=== PATIENT | male | born 1985 | race African-American/Black ===

== ENCOUNTER 2017-09-12 21:08 | Emergency (ER) | payer OTHER ==
[~2017-09-12] VITALS: Ht 170.2 cm; Wt 113.4 kg
--- NOTE | ~2017-09-12 | EKG ---
[address] [address] ELECTROCARDIOGRAM REPORT Name: BUTCHAPARNA LEVI [id number] Admission: 09/12/17 Attend Phys: Discharge: 09/12/17 Date of : 81 Report #: [id number] THIS REPORT FOR: //name// [facility] ED Test Date: 2017-09-12 Test Time: 21:54:50 Pat Name: APARNA RAE Department: Room: Gender: Air Quality Specialist: KYLEE : 1985 Requested By: Shad Virk Order Number: [id number] MD: Navjot Thurman Measurements Intervals [place] Rate: 85 P: 46 MS: 163 QRS: 56 QRSD: 92 T: 144 QT: 395 QTc: 470 Interpretive Statements Sinus rhythm Left atrial enlargement anterior st elevations, possible early repol, similar to prior ekg Electronically Signed On 09-13-2017 7:31:36 CDT by Navjot Thurman [email or web address] <ELECTRONICALLY SIGNED> By: Navjot Thurman MD 09/13/17 0731 [id number] [id number] MD DIANA Clements
[~2017-09-12 21:08] MED LIST: ADVAIR HFA115 MCG/21 INH; ALBUTEROL2.5 MG/0.5 INH; AVELOX; AVELOX 400 MG400 MG; CLARITIN10 MG PO; DUONEB 2.5-0.5 M3 ML; DUONEB 2.5-0.5 M3 ML INH; FLAGYL500 MG PO; LISINOPRIL20 MG PO; MUCINEX600 MG PO; NOHOMEMEDICATIONS; NORVASC10 MG PO; PANTOPRAZOLE SO40 M1 PO; PREDNISONE 20 M20 MG PO; PREDNISONE PO; PRILOSEC 20 MG20 MG PO; PROVENTIL IH; PULMICORT FLEX90 MCG; SINGULAIR 10 MG10 M1 PO; VENTOLIN HFA 1818 GM INH; ZPAK PO
[2017-09-12 22:28] LABS: HEMATOCRIT 48.2 % (42.0-52.0); HEMOGLOBIN 16.9 gm/dL (14.0-18.0); MCH 30.1 pg (26.0-34.0); MCHC 35.1 g/dL (28.0-37.0); MCV 85.8 fL (80.0-100.0); RBC 5.62 mil/uL (4.50-6.00); RDW 13.9 % (10.5-14.5); WBC 5.7 thou/uL (4.0-11.0)
[2017-09-12 22:36] LABS: ANION GAP 7 mmol/L (7-16); BUN 15 mg/dL (7-18); CALCIUM 8.7 mg/dL (8.5-10.1); CHLORIDE 103 mmol/L (98-107); CO2 27 mmol/L (21-32); CREATININE 1.5 mg/dL (0.7-1.3); GLUCOSE 111 mg/dL (74-106); POTASSIUM 3.9 mmol/L (3.5-5.1); SODIUM 137 mmol/L (136-145)
[2017-09-12 22:45] LABS: TROPONIN-I < 0.04 ng/mL (<0.06)
[2017-09-12] MEDS ORDERED: HYDROCHLOROTHIA25 M1 PO (23:33)
[2017-09-12] MEDS ORDERED: PREDNISONE 20 M20 MG PO (23:33)
[2017-09-12] MEDS ORDERED: VENTOLIN HFA 1818 GM INH (23:33)
[2017-09-12] MEDS ORDERED: ALBUTEROL2.5 MG/31 INH (23:33)
== END 2017-09-12 23:41 | disposition home or self-care (01) ==
LOC: ER 21:08
PROVIDERS: Physician Assistant
DX: J45.909 Unspecified asthma, uncomplicated (principal); I16.0 Hypertensive urgency; Z91.14 Patient's other noncompliance with medication regimen; Z91.013 Allergy to seafood

== ENCOUNTER 2017-12-08 06:02 | Inpatient (IN) | payer OTHER ==
[~2017-12-08] VITALS: Ht 170.2 cm; Wt 113.4 kg
--- NOTE | ~2017-12-08 | EKG ---
[address] [address] ELECTROCARDIOGRAM REPORT Name: BUTCHAPARNATYREE SIMS Room #: 170-4 [facility]..#: [id number] Admission: 12/08/17 Attend Phys: Marques Hurst MD Discharge: Date of : 81 Report #: [id number] THIS REPORT FOR: //name// [facility] ED Test Date: 2017-12-08 Test Time: 07:48:27 Pat Name: APARNA RAE Department: Room: 170 Gender: M Client Partner: TIN : 1985 Requested By: Ramsey Perez Order Number: [id number] MD: Navjot Thurman Measurements Intervals [place] Rate: 114 P: 70 AR: 149 QRS: 75 QRSD: 87 T: 72 QT: 348 QTc: 480 Interpretive Statements Sinus tachycardia Left atrial enlargement ST elev, probable normal early repol pattern Compared to ECG 09/12/2017 21:54:50 Electronically Signed On 12-08-2017 10:46:34 AGRICULTURAL ENGINEERING TECHNOLOGIST by Navjot Thurman [email or web address] <ELECTRONICALLY SIGNED> By: Navjot Thurman MD 12/08/17 1046 0748 Navjot Thurman MD /KATRINA
[~2017-12-08 06:02] MED LIST changes: +ALBUTEROL2.5 MG/31 INH; +HYDROCHLOROTHIA25 M1 PO
[2017-12-08 06:09] VITALS: BP 219/142
[2017-12-08 07:27] LABS: HEMATOCRIT 49.1 % (42.0-52.0); HEMOGLOBIN 17.2 gm/dL (14.0-18.0); MCH 29.1 pg (26.0-34.0); MCV 83.2 fL (80.0-100.0); RBC 5.9 mil/uL (4.50-6.00); RDW 13.7 % (10.5-14.5); WBC 9.8 thou/uL (4.0-11.0)
[2017-12-08 07:34] LABS: CALCIUM 9.1 mg/dL (8.5-10.1); CREATININE 1.5 mg/dL (0.7-1.3); POTASSIUM 4.2 mmol/L (3.5-5.1)
[2017-12-08] MEDS ORDERED: PREDNISONE 20 M20 MG PO (07:43)
[2017-12-08] MEDS ORDERED: PROAIR HFA8.5 GM INH (07:43)
[2017-12-08] MEDS ORDERED: ZPAK PO (07:44)
[2017-12-08 11:06] VITALS: BP 178/115
[2017-12-08 12:23] VITALS: BP 190/121
[2017-12-08 19:00] VITALS: BP 177/104
[2017-12-09] VITALS: BP 145/88
[2017-12-09 04:00] VITALS: BP 137/88
[2017-12-09 08:16] VITALS: BP 134/82
[2017-12-09 11:49] LABS: HEMATOCRIT 47.5 % (42.0-52.0); HEMOGLOBIN 16.2 gm/dL (14.0-18.0); MCH 28.7 pg (26.0-34.0); MCHC 34.2 g/dL (28.0-37.0); MCV 83.9 fL (80.0-100.0); RBC 5.66 mil/uL (4.50-6.00); RDW 13.4 % (10.5-14.5); WBC 16.2 thou/uL (4.0-11.0)
[2017-12-09 12:05] LABS: ANION GAP 13 mmol/L (7-16); BUN 23 mg/dL (7-18); CALCIUM 9.4 mg/dL (8.5-10.1); CHLORIDE 100 mmol/L (98-107); CO2 24 mmol/L (21-32); CREATININE 1.7 mg/dL (0.7-1.3); GLUCOSE 178 mg/dL (74-106); POTASSIUM 3.4 mmol/L (3.5-5.1); SODIUM 137 mmol/L (136-145); TROPONIN-I < 0.04 ng/mL (<0.06)
[2017-12-09 17:17] VITALS: BP 161/85
[2017-12-09 20:00] VITALS: BP 148/74
[2017-12-09 20:45] VITALS: BP 148/74
[2017-12-10 04:00] VITALS: BP 144/71
[2017-12-10 06:14] LABS: HEMATOCRIT 41.1 % (42.0-52.0); MCH 28.7 pg (26.0-34.0); MCHC 33.9 g/dL (28.0-37.0); MCV 84.6 fL (80.0-100.0); RBC 4.86 mil/uL (4.50-6.00); RDW 13.6 % (10.5-14.5)
[2017-12-10 06:18] LABS: HEMOGLOBIN 13.9 gm/dL (14.0-18.0)
[2017-12-10 06:22] LABS: CALCIUM 8.9 mg/dL (8.5-10.1); CREATININE 1.6 mg/dL (0.7-1.3); POTASSIUM 3.6 mmol/L (3.5-5.1)
[2017-12-10 09:00] VITALS: BP 148/77
[2017-12-10 16:45] VITALS: BP 187/69
[2017-12-10 20:07] VITALS: BP 149/71
[2017-12-11 06:22] LABS: HEMATOCRIT 43.3 % (42.0-52.0); HEMOGLOBIN 14.7 gm/dL (14.0-18.0); MCV 85.4 fL (80.0-100.0); RBC 5.07 mil/uL (4.50-6.00); RDW 13.6 % (10.5-14.5); WBC 16.7 thou/uL (4.0-11.0)
[2017-12-11 06:30] LABS: CALCIUM 8.7 mg/dL (8.5-10.1); CREATININE 1.4 mg/dL (0.7-1.3); POTASSIUM 3.8 mmol/L (3.5-5.1)
[2017-12-11 09:28] VITALS: BP 147/73
[2017-12-11] MEDS ORDERED: PREDNISONE 10 M10 M1 PO ×2 (14:57→15:13)
[2017-12-11] MEDS ORDERED: FELODIPINE 5 MG5 M1 PO (14:57)
[2017-12-11] MEDS ORDERED: PROTONIX 20 MG20 M1 PO (14:57)
[2017-12-11] MEDS ORDERED: MUCINEX600 MG PO (14:57)
[2017-12-11] MEDS ORDERED: HYDROCHLOROTHIA25 M1 PO (14:57)
[2017-12-11] MEDS ORDERED: LEVAQUIN 500 M50012 PO (14:57)
[2017-12-11 15:42] VITALS: BP 147/73
== END 2017-12-11 18:02 | disposition home or self-care (01) | DRG 304 ==
LOC: ER 06:02 → 4N 08:05 → EROBS 08:05 → 4N 11:37
PROVIDERS: Emergency Medicine; Internal Medicine
DX: I16.0 Hypertensive urgency (principal); N17.0 Acute kidney failure with tubular necrosis; J45.901 Unspecified asthma with (acute) exacerbation; I10 Essential (primary) hypertension; F17.210 Nicotine dependence, cigarettes, uncomplicated; Z79.899 Other long term (current) drug therapy; Z71.6 Tobacco abuse counseling; Z91.013 Allergy to seafood; Z23 Encounter for immunization
CPT/HCPCS: 10091

== ENCOUNTER 2019-01-06 12:10 | Emergency (ER) | payer BC, OTHER ==
[~2019-01-06] VITALS: Ht 190.5 cm; Wt 126.1 kg
[~2019-01-06 12:10] MED LIST changes: +FELODIPINE 5 MG5 M1 PO; +LEVAQUIN 500 M50012 PO; +PREDNISONE 10 M10 M1 PO; +PROAIR HFA8.5 GM INH; +PROTONIX 20 MG20 M1 PO
[2019-01-06] MEDS ORDERED: PREDNISONE 20 M20 M1 PO (14:52)
[2019-01-06] MEDS ORDERED: ADVAIR HFA 230M12 GM INH (14:52)
[2019-01-06] MEDS ORDERED: VENTOLIN HFA 1818 GM INH (14:52)
[2019-01-06 15:13] VITALS: BP 176/100
== END 2019-01-06 15:14 | disposition home or self-care (01) ==
LOC: ER 12:10
DX: J45.901 Unspecified asthma with (acute) exacerbation (principal); I10 Essential (primary) hypertension; Z87.891 Personal history of nicotine dependence; Z91.013 Allergy to seafood

== ENCOUNTER 2019-10-18 14:14 | Inpatient (IN) | payer BC, OTHER ==
[~2019-10-18] VITALS: Ht 167.6 cm; Wt 98.1 kg
[~2019-10-18 14:14] MED LIST changes: +ADVAIR HFA 230M12 GM INH; +PREDNISONE 20 M20 M1 PO
[2019-10-18 14:16] VITALS: BP 183/104
[2019-10-18 15:27] LABS: MCHC 34.4 g/dL (28.0-37.0)
[2019-10-18 15:29] LABS: ABSOLUTE NEUTROPHILS 5.6 thou/uL (1.4-8.2); BASOPHILS 1.5 % (0.0-2.0); EOSINOPHILS 4.5 % (0.0-3.0); HEMATOCRIT 32.1 % (42.0-52.0); HEMOGLOBIN 11.1 gm/dL (14.0-18.0); MCH 30.5 pg (26.0-34.0); MCV 88.7 fL (80.0-100.0); MONOCYTES 5.8 % (1.0-8.0); PLATELET COUNT 138 thou/uL (150-400); POLYS 77.2 % (36.0-66.0); RBC 3.63 mil/uL (4.50-6.00); RDW 15.7 % (10.5-14.5); WBC 7.2 thou/uL (4.0-11.0)
[2019-10-18 15:35] LABS: CALCIUM 8.6 mg/dL (8.5-10.1); CREATININE 3.6 mg/dL (0.7-1.3)
[2019-10-18 15:45] LABS: URINE BILIRUBIN NEGATIVE (Negative); URINE BLOOD 2+ (Negative); URINE CLARITY CLEAR; URINE COLOR YELLOW; URINE GLUCOSE-RANDOM* NEGATIVE (Negative); URINE KETONES NEGATIVE (Negative); URINE LEUKOCYTES-REFLEX NEGATIVE (Negative); URINE NITRITE-REFLEX NEGATIVE (Negative); URINE PROTEIN (DIPSTICK) 1+ (Negative); URINE SPECIFIC GRAVITY 1.015 (1.005-1.035); URINE UROBILINOGEN 0.2 E.U./dl (0.2-1.0)
[2019-10-18 15:45] LABS: ALBUMIN 3.5 g/dL (3.4-5.0); TOTAL BILIRUBIN 0.5 mg/dL (<0.1-1.0); TROPONIN-I 0.15 ng/mL (<0.06)
[2019-10-18 15:57] LABS: BACTERIA-REFLEX None Seen /HPF (None Seen); CASTS None Seen /LPF (None Seen); CRYSTALS None Seen /LPF (None Seen); SQUAMOUS None Seen /LPF (0-3); URINE RBC 0-2 Rare /HPF (0-2); URINE WBC-REFLEX None Seen /HPF (0-5)
[2019-10-18 16:36] VITALS: BP 162/92
[2019-10-18 17:46] VITALS: BP 156/96
[2019-10-18 18:43] VITALS: BP 158/91
--- NOTE | 2019-10-18 18:49 | NUR ---
ASSUMMED PT CARE AT APPROXIMATELY 1843. PT A&O X4. VITAL SIGNS STABLE. PT DENIES HAVING CHEST PAIN. PT DENIES HAVING SOB. PT AMBULATES STEADY/INDEPENDENTLY. PT COMFORTABLE IN BED. PT DENIES HAVING FURTHER CONCERNS.
[2019-10-18 19:47] VITALS: BP 159/94
[2019-10-19 01:49] VITALS: BP 133/65
[2019-10-19 04:27] VITALS: BP 129/82
--- NOTE | 2019-10-19 04:37 | NUR ---
PT ARRIVED ON UNIT AT CHANGE OF SHIFT. ALERT AND ORIENTED. VSS WITH ELEVATED BP SBP IN 158. PT DENIES CHEST PAIN, NAUSEA, VOMITING AND DIRRHEA. DENIES COUGH OR CHILLS. REPORTS HEADACHE AND PHOTO SENSITIVITY , AND TOOTH ACHE. TYLENOL GIVEN. ADMISSION ASSESSMENT COMPLETED. PT CURRENTLY PAIN CONTROLLED AND BP WNL. WILL CONTINUE TO MONITOR.
[2019-10-19 04:40] LABS: CREATININE 3.7 mg/dL (0.7-1.3); POTASSIUM 3.1 mmol/L (3.5-5.1)
[2019-10-19 04:51] LABS: HEMATOCRIT 32.2 % (42.0-52.0); HEMOGLOBIN 10.8 gm/dL (14.0-18.0); MCH 30.1 pg (26.0-34.0); MCHC 33.5 g/dL (28.0-37.0); MCV 89.9 fL (80.0-100.0); RBC 3.59 mil/uL (4.50-6.00); RDW 15.8 % (10.5-14.5); WBC 6.2 thou/uL (4.0-11.0)
[2019-10-19 07:50] VITALS: BP 148/78
--- NOTE | 2019-10-19 08:15 | NUR ---
ASSUMED CARE OF PT APPROX 0715, C/O HEADACHE 02/20, HAS SOME MUCUS HE KEEPS HOCKING AND SWALLOWING DENIES COUGH, DIMINISHED LUNG SOUNDS, LAST BM WAS YESTERDAY. CARDIAC MONITORED, IVF RUNNING, SEE SEPARATE INTERVENTIONS FOR ASSESSMENTS. NOTED K+ 3.1 THIS A.M. UP AD AN STEADY. ENCOURAGED PT TO USE CALL LIGHT FOR ANY NEEDS.
--- NOTE | 2019-10-19 10:48 | EKG ---
[place] [address] [facility] [place] [address] ELECTROCARDIOGRAM REPORT Name: BUTCHAPARNATYREE SIMS Room #: 214-P ADM IN M.R.#: [id number] Admission: 10/18/19 Attend Phys: Luigi Urena MD Discharge: Date of : 81 Report #: [id number] THIS REPORT FOR: //name// [facility] ED Test Date: 2019-10-18 Test Time: 15:27:22 Pat Name: APARNA RAE Department: Room: 214 Gender: M Clergy Member: randi : 1985 Requested By: Shy Levy Order Number: [id number] MD: Navjot Thurman Measurements Intervals [place] Rate: 97 P: 74 DE: 147 QRS: 46 QRSD: 113 T: 207 QT: 379 QTc: 482 Interpretive Statements Sinus rhythm LAE, consider biatrial enlargement RSR' in V1 or V2, probably normal variant LVH with secondary repolarization abnormality Anterior ST elevation, probably due to LVH Electronically Signed On 10-19-2019 10:48:08 INKER AND OPAQUER by Navjot Thurman [email or web address] <ELECTRONICALLY SIGNED> By: Navjot Thurman MD 10/19/19 1048 1527 1527 Navjot Thurman MD /EPI
--- NOTE | 2019-10-19 13:32 | NUR ---
INTRO'D ONCOMING NURSE TO PT AND GAVE REPORT
[2019-10-19 17:30] VITALS: BP 125/54
--- NOTE | 2019-10-19 17:40 | 2DMMODE ---
[facility] [address] [employer] [place] [address] 2 D/M-MODE ECHOCARDIOGRAM Name: BUTCHAPARNATYREE SIMS Room #: 214-P [facility] IN M.R.#: [id number] Admission: 10/18/19 Attend Phys: Luigi Urena MD Discharge: Date of : 81 Report #: [id number] THIS REPORT FOR: //name// APPROVED REPORT Study performed: 10/19/2019 12:09:03 EXAM: Comprehensive 2D, Doppler, and color-flow Echocardiogram Patient Location: Bedside Room #: 214 Status: on-call BSA: 2.05 HR: 79 bpm BP: 148/78 mmHg Rhythm: NSR Other Information Study Quality: Adequate Risk Factors: Cardiac Risk Factors: HTN, DM,, Smoking Indications Elevated Troponin Chest Pain 2D Dimensions IVSd: 16.44 (7-11mm) LVOT Diam: 22.00 (18-24mm) LVDd: 44.12 mm PWd: 17.27 (7-11mm) Ascending Ao: 26.96 (22-36mm) LVDs: 28.80 (25-40mm) Aortic Root: 32.13 mm LV Single Plane 4CH: 62.80 % LV Single Plane 2CH: 53.51 % Biplane EF: 58.8 % Volumes Left Atrial Volume (Systole) Single Plane 4CH: 62.46 mL Single Plane 2CH: 54.72 mL LA ESV Index: 30.00 mL/m2 Aortic Valve AoV Peak Henry.: 1.49 m/s AO Peak Gr.: 8.82 mmHg LVOT Max P.40 mmHg LVOT Max V: 1.16 m/s [facility] [address] [address] 2 D/M-MODE ECHOCARDIOGRAM Name: APARNA RAE Room #: 214-[facility].#: [id number] Admission: 10/18/19 Attend Phys: Luigi Urena MD Discharge: Date of : 81 Report #: [id number] ROQUE Vmax: 2.87 cm2 Mitral Valve E/A Ratio: 0.8 MV Decel. Time: 199.00 ms MV E Max Henry.: 0.63 m/s MV A Henry.: 0.83 m/s MV PHT: 57.71 ms IVRT: 86.51 ms TDI E/Lateral E': 15.75 E/Medial E': 10.50 Medial E' Henry.: 0.06 m/s Lateral E' Henry.: 0.04 m/s Pulmonary Valve PV Peak Henry.: 1.15 m/s PV Peak Gr.: 5.32 mmHg Pulmonary Vein P Vein S: 0.68 m/s P Vein A: 0.28 m/s P Vein D: 0.63 m/s P Vein A Dur.: 114.2 msec P Vein S/D Ratio: 1.08 Tricuspid Valve RAP Estimate: 7.00 mmHg Left Ventricle The left ventricle is normal size. There is normal LV segmental wall motion. Moderate to severe concentric left ventricular hypertrophy. Left ventricular systolic function is normal. The left ventricular ejection fraction is within the normal range. LVEF is 60-65%. Mild diastolic dysfunction is present (impaired relaxation pattern). Right Ventricle The right ventricle is normal size. The right ventricular systolic function is normal. Atria The left atrium size is normal. The right atrium size is normal. Aortic Valve The aortic valve is normal in structure. No aortic regurgitation is present. There is no aortic valvular stenosis. [facility] [address] [place] [address] 2 D/M-MODE ECHOCARDIOGRAM Name: APARNA RAEWAYNE Room #: 214-[facility] IN ..#: [id number] Admission: 10/18/19 Attend Phys: Luigi Urena MD Discharge: Date of : 81 Report #: [id number] Mitral Valve The mitral valve is normal in structure. Trace to mild mitral regurgitation. No evidence of mitral valve stenosis. Tricuspid Valve The tricuspid valve is normal in structure. There is no tricuspid valve regurgitation noted. Pulmonic Valve The pulmonary valve is normal in structure. Trace to mild pulmonic regurgitation. Great Vessels The aortic root is normal in size. The ascending aorta is normal in size. IVC is normal in size and collapses >50% with inspiration. Pericardium There is no pericardial effusion. <Conclusion> The left ventricle is normal size. LVEF is 60-65%. The aortic valve is normal in structure. The mitral valve is normal in structure. Trace to mild mitral regurgitation. The tricuspid valve is normal in structure. The pulmonary valve is normal in structure. Trace to mild pulmonic regurgitation. There is no pericardial effusion. <ELECTRONICALLY SIGNED> By: Markus Snider MD 10/19/19 [phone] [id number] Markus Snider MD /INF
--- NOTE | 2019-10-19 18:01 | NUR ---
ASSUMED CARE AT 1300, SHIFT ASSESSMENT DONE, MEDS GIVEN, VSS. BP TRENDING DOWN. UP AD AN, NSR ON TELE. URINE SAMPLE PENDING FOR DRUG SCREEN. REPORTED HEADECHE, PRN TYLENOL GIVEN. WILL CONTINUE TO ASSESS AND ASSIST WITH ADLs NEEDED.
[2019-10-19 20:30] VITALS: BP 152/77
[2019-10-20 04:46] VITALS: BP 139/74
[2019-10-20 04:46] LABS: ALBUMIN 2.9 g/dL (3.4-5.0); CALCIUM 8.3 mg/dL (8.5-10.1); CREATININE 3.3 mg/dL (0.7-1.3); MAGNESIUM 2.2 mg/dL (1.8-2.4); PHOSPHORUS 3.7 mg/dL (2.5-4.9); POTASSIUM 3.4 mmol/L (3.5-5.1); TOTAL BILIRUBIN 0.2 mg/dL (<0.1-1.0); TOTAL PROTEIN 5.9 g/dL (6.4-8.2); TROPONIN-I 0.1 ng/mL (<0.06)
[2019-10-20 04:57] LABS: CHOLESTEROL 154 mg/dL (<200); HDL CHOLESTEROL 52 mg/dL (>40); LDL CHOLESTEROL 86 mg/dL (<100); TRIGLYCERIDE 80 mg/dL (<150); VLDL 16 mg/dL (<40)
--- NOTE | 2019-10-20 05:03 | NUR ---
PT ALERT AND ORIENTED. DENIES CHEST PAIN OR HEART PALPITATIONS. REPORTED SOB DUE TO HIS ASTHMA AND NEBULIZER WAS ADMINISTERED X 1. OTHER PT STABLE. BP BETTER CONTROLLED. OTHER ASSESSMENTS DOCUMENTED. WILL CONTINUE WITH PLAN OF CARE.
[2019-10-20 05:05] LABS: SERUM ASSESSMENT Clear
[2019-10-20 05:09] LABS: ABSOLUTE NEUTROPHILS 3.7 thou/uL (1.4-8.2); EOSINOPHILS 7.9 % (0.0-3.0); HEMATOCRIT 32.8 % (42.0-52.0); LYMPHOCYTES 20.2 % (24.0-44.0); MCH 30.3 pg (26.0-34.0); MCHC 33.4 g/dL (28.0-37.0); MCV 90.6 fL (80.0-100.0); MONOCYTES 6.7 % (1.0-8.0); PLATELET COUNT 172 thou/uL (150-400); POLYS 64.2 % (36.0-66.0); RBC 3.62 mil/uL (4.50-6.00); RDW 16.6 % (10.5-14.5); WBC 5.8 thou/uL (4.0-11.0)
[2019-10-20 06:35] LABS: ANISOCYTOSIS 2+; PLATELET ESTIMATE NORMAL
[2019-10-20 07:21] LABS: AMP/METHAMP Negative (Negative); BARBITURATES Negative (Negative); BENZODIAZEPINES Negative (Negative); COCAINE Negative (Negative); METHADONE Negative (Negative); OPIATES Negative (Negative); PCP POSITIVE (Negative)
[2019-10-20 07:40] VITALS: BP 130/79
--- NOTE | 2019-10-20 07:47 | NUR ---
ASSUMED CARE OF PT APPROX 0715; APPEARS IN GOOD SPIRITS, BP OF THIS MOMENT 130S SBP, RATES PAIN OF TOOTHACHE AND HEADACHE AT ABOUT A 2, GOOD APPETITE AND HYDRATION, EKG BEING DONE CURRENTLY. GAVE HAND REEFER TRUCK DRIVER, MOUTHWASH, TOILETRIES AND EXTRA JUICE. BM EARLY THIS A.M. NO NEEDS AT THIS TIME AND HAVE ENCOURAGED HIM TO USE CALL LIGHT FOR ANY NEEDS. SEE INTERVENTIONS FOR VARIOUS ASSESSMENTS, IVF RUNNING AND CARDIAC MONITORED; WILL UNHOOK SO THAT HE CAN STROLL HALLS FOR A BIT LATER THIS A.M.
--- NOTE | 2019-10-20 11:23 | EKG ---
[address] [address] ELECTROCARDIOGRAM REPORT Name: SINGH RAETYREE SIMS Room #: 214-P ADM IN M.R.#: [id number] Admission: 10/18/19 Attend Phys: Luigi Urena MD Discharge: Date of : 81 Report #: [id number] THIS REPORT FOR: //name// [facility] Test Date: 2019-10-20 Test Time: 07:41:39 Pat Name: APARNA RAE Department: Room: 214 P Gender: M Instructional Material Director: ADARSH : 1985 Requested By: Rocio Treviño Order Number: [id number] MD: Navjot Thurman Measurements Intervals [place] Rate: 77 P: 49 MT: 158 QRS: 30 QRSD: 87 T: 209 QT: 432 QTc: 489 Interpretive Statements Sinus rhythm Left atrial enlargement Probable left ventricular hypertrophy Early repolarization. Compared to ECG 10/18/2019 15:27:22 Electronically Signed On 10-20-2019 11:23:13 BUSINESS ANALYST MANAGER by Navjot Thurman [email or web address] <ELECTRONICALLY SIGNED> By: Navjot Thurman MD 10/20/19 1123 0 Navjot Thurman MD /KATRINA
[2019-10-20 16:00] VITALS: BP 143/76
--- NOTE | 2019-10-20 16:01 | NUR ---
ASSUMED CARE AT 1300, SHIFT ASSESMENT DONE, MEDS GIVEN, VSS. NSR ON TELE, ROOM AIR. SCHEDULED FOR ECHO TOMORROW MORNING. DR JACKSON CONSULTED, FLUID STOPPED. WILL CONTINUE TO ASSESS AND ASSIST WITH ADLs NEEDED.
[2019-10-20 20:14] VITALS: BP 140/78
--- NOTE | 2019-10-21 04:32 | NUR ---
ASSUMED PT CARE AROUND 1900. PT VSS AND NO C/O SOB N/V/D. PT C/O TOOTHACHE/HEADACHE PROVIDED PAIN MEDICATION WITH PARTIAL RELIEF THROUGHOUT SHIFT. WILL CONTINUE TO MONITOR PT PER POC.
[2019-10-21 04:44] VITALS: BP 145/85
[2019-10-21 05:42] LABS: CALCIUM 8.5 mg/dL (8.5-10.1); CREATININE 3.2 mg/dL (0.7-1.3); PHOSPHORUS 4.3 mg/dL (2.5-4.9); POTASSIUM 3.9 mmol/L (3.5-5.1)
[2019-10-21 08:00] VITALS: BP 158/96
--- NOTE | 2019-10-21 10:37 | NUR ---
ASSUMED CARE AT 0700, SHIFT ASSESSMENT DONE, MEDS GIVEN, VSS. DENIES PAIN, NAUSEA, VOMITING. UP AD AN IN ROOM, NSR ON TELE. REPORTED TOOTH PAIN, PRN TYLENOL GIVEN. AWAITING FOR AN ECHO TO BE DONE. WILL COTINUE TO ASSESS AND ASSIST WITH ADLs NEEDED.
[2019-10-21 12:00] VITALS: BP 146/82
[2019-10-21 16:00] VITALS: BP 138/81
[2019-10-21 19:38] VITALS: BP 150/87
[2019-10-22 00:16] VITALS: BP 129/57
[2019-10-22 04:34] VITALS: BP 120/69
[2019-10-22 06:07] LABS: ALBUMIN 2.9 g/dL (3.4-5.0); CALCIUM 8.7 mg/dL (8.5-10.1); CREATININE 3.4 mg/dL (0.7-1.3); PHOSPHORUS 5.1 mg/dL (2.5-4.9); POTASSIUM 3.6 mmol/L (3.5-5.1)
--- NOTE | 2019-10-22 06:22 | NUR ---
PATIENTS CARES WERE ASSUMED AT SHIFT CHANGE. PATIENT WAS ASSESSED AND MES WERE PASSED. PATIENT C/O PAINFUL TOOTH THE RIGHT BACK MOLAR. A ONE HAILEY ODER OF 200 MG MOLTRIN WAS GIVEN SO THE PATIENT CAN SLEEP. THIS IS A ONE TIE ORDER DUR TO A HIGH CREATININE OF 3.2. PATIENT REPORTED THAT THE TYLENOL IS NOT EFFECTIVE. HOURLY ROUNDS WERE DONE. THE BED IS IN A LOW AND LOCKED POSITION
[2019-10-22 08:00] VITALS: BP 144/71
[2019-10-22] MEDS ORDERED: METOPROLOL SUCC50 MG PO (10:04)
[2019-10-22] MEDS ORDERED: AMLODIPINE BESY10 MG PO (10:04)
[2019-10-22] MEDS ORDERED: HYDROCHLOROTHIA25 M1 PO (10:04)
[2019-10-22 10:45] VITALS: BP 144/71
--- NOTE | 2019-10-22 10:55 | NUR ---
RECEIVED PT'S CARE AROUND 07; PT. AOX4; NO C/O PAIN; AM MEDICATION GIVEN; ST. WAITING FOR D/C; EDUCATED ABOUT WAITING ON PHYSICIAN ROUNDING; SR ON HEART MONITOR; NO C/O CP; BP WNL; ASSESSMENT CHARGED; FOLLOWING POC; AROUND 1030 D/C ORDERS ON PLACE; PT. NOTIFIED; ST. UNDERSTANDING; WORKING ON D/C PAPERS; PRESCRIPTIONS & INFORMATION WILL BE GIVEN BEFORE D/C;
[2019-10-22 12:03] VITALS: BP 144/71
--- NOTE | 2019-10-23 10:09 | HC ---
[facility] [place] [address] CONSULTATION Name: APARNA RAEWAYNE Room #: 214-P [facility] IN M.R.#: [id number] Admission: 10/18/19 Attend Phys: Luigi Urena MD Discharge: 10/22/19 Date of : 81 Report #: [id number] THIS REPORT FOR: //name// CC: Luigi Urena [facility] physician/PCP REASON FOR CONSULTATION: Elevated creatinine. REASON FOR PRESENTATION: Headache. HISTORY OF PRESENT ILLNESS: This is a 34-year-old with history of hypertension, who has not been taking his medications appropriately. He had been having some headaches for the last few days associated with some dizziness. On reporting to the Emergency Room, he was found to be in hypertensive urgency. Blood pressure was 183/104. The patient had been taking nonsteroidal anti-inflammatory medications on a routine basis. Creatinine on presentation was 3.6 and has gone up to 3.7 and then is now down to 3.3. It does look like that the patient had some abnormal kidney function back in 2018. We do not have any readings from 2019. He was admitted to better control his blood pressure and surprisingly his blood pressure is much better on a couple of blood pressure medications. PAST MEDICAL HISTORY: 1. Hypertension. 2. The patient tells me that he has had heart attacks in the past. I am not really sure how accurate is this. 3. Asthma. MEDICATIONS: 1. Prednisone. 2. Albuterol. 3. Felodipine. 4. Hydrochlorothiazide. SOCIAL HISTORY: He admits to drug abuse. REVIEW OF SYSTEMS: GENERAL: No fever or chills. CARDIOVASCULAR: No chest pain or palpitation. PULMONARY: No cough or hemoptysis. GASTROINTESTINAL: No nausea or vomiting. GENITOURINARY: No frequency. No urgency. MUSCULOSKELETAL: No joints pain. No joint swelling. NEUROLOGICAL: As per the history of present illness. FAMILY HISTORY: Significant for hypertension. ALLERGIES: SHELLFISH. [facility] [address] [place] [address] CONSULTATION Name: APARNA RAENE Room #: 214-[facility] [id number] Admission: 10/18/19 Attend Phys: Luigi Urena MD Discharge: 10/22/19 Date of : 81 Report #: [id number] PHYSICAL EXAMINATION: GENERAL: He is alert, oriented, in no apparent distress. VITAL SIGNS: Blood pressure is currently 130/74. HEAD AND NECK: No jugular venous distention. CHEST: Decreased air entry bilaterally. CARDIOVASCULAR: Regular with no rub detected. ABDOMEN: Soft, nontender with no hepatosplenomegaly. EXTREMITIES: Lower extremities, no edema. LABORATORY DATA: Reviewed. Creatinine is down to 3.3. Potassium is 3.4. Mildly elevated troponin noted. Renal ultrasound showed poorly visualized kidneys. IMPRESSION AND PLAN: 1. Acute kidney injury. 2. Chronic kidney disease. 3. Hypertensive urgency with noncompliance. 4. The patient has all stigmata of hypertensive arterionephrosclerosis. Surprisingly, his blood pressure is currently under well control with Norvasc, metoprolol, hydralazine. Ideally, he should be on thiazide diuretics, angiotensin receptor kathy or angiotensin converting enzyme inhibitor. I will defer this to the primary team and the Cardiology team. His creatinine is expected to continue to improve. I am not really sure about the patient's creatinine baseline in 2019; however, he did have chronic kidney disease dating back to 2018. 5. Salt restriction. 6. Counseling about compliance. <ELECTRONICALLY SIGNED> By: Cuate Dasilva MD 10/23/19 1009 0927 Cuate Dasilva MD /nt
== END 2019-10-22 12:13 | disposition home or self-care (01) | DRG 305 ==
LOC: ER 14:14 → EROBS 16:01 → 2N 16:01
PROVIDERS: Hospitalist; Internal Medicine; Internal Medicine Cardiovascular Disease; Nurse Practitioner; Nurse Practitioner Family; ADMIT Hospitalist
DX: I16.0 Hypertensive urgency (principal); N17.9 Acute kidney failure, unspecified; J45.909 Unspecified asthma, uncomplicated; E87.6 Hypokalemia; N18.9 Chronic kidney disease, unspecified; F17.210 Nicotine dependence, cigarettes, uncomplicated; D64.9 Anemia, unspecified; D69.6 Thrombocytopenia, unspecified; I13.10 Hypertensive heart and chronic kidney disease without heart failure, with stage 1 through stage 4 chronic kidney disease, or unspecified chronic kidney disease; E66.9 Obesity, unspecified; Z68.34 Body mass index [BMI] 34.0-34.9, adult; Z91.013 Allergy to seafood; Z91.19 Patient's noncompliance with other medical treatment and regimen; Z23 Encounter for immunization; Z79.899 Other long term (current) drug therapy
CPT/HCPCS: 10081; 10194

== ENCOUNTER 2020-08-19 04:49 | Emergency (ER) | payer BC, OTHER ==
[~2020-08-19] VITALS: Ht 170.2 cm; Wt 97.5 kg
[~2020-08-19 04:49] MED LIST changes: +AMLODIPINE BESY10 MG PO; +METOPROLOL SUCC50 MG PO
[2020-08-19] MEDS ORDERED: TOPROL XL50 MG PO (05:11)
[2020-08-19] MEDS ORDERED: HYDROCHLOROTHIA25 M2 PO (05:11)
[2020-08-19 05:55] LABS: CALCIUM 9.1 mg/dL (8.5-10.1); CREATININE 2.4 mg/dL (0.7-1.3); POTASSIUM 3.3 mmol/L (3.5-5.1)
[2020-08-19 06:05] LABS: ALBUMIN 4.1 g/dL (3.4-5.0); DIRECT BILIRUBIN 0.1 mg/dL (<0.1-0.2); TOTAL BILIRUBIN 0.5 mg/dL (0.2-1.0); TOTAL PROTEIN 8.9 g/dL (6.4-8.2)
[2020-08-19 06:06] LABS: ABSOLUTE NEUTROPHILS 7.1 thou/uL (1.4-8.2); BASOPHILS 1.1 % (0.0-2.0); EOSINOPHILS 2.1 % (0.0-3.0); HEMATOCRIT 50.3 % (42.0-52.0); HEMOGLOBIN 17.4 gm/dL (14.0-18.0); LYMPHOCYTES 9.6 % (24.0-44.0); MCH 29.7 pg (26.0-34.0); MCHC 34.5 g/dL (28.0-37.0); MCV 85.9 fL (80.0-100.0); MONOCYTES 5.1 % (1.0-8.0); PLATELET COUNT 233 thou/uL (150-400); POLYS 82.1 % (36.0-66.0); RBC 5.86 mil/uL (4.50-6.00); RDW 14.5 % (10.5-14.5); WBC 8.7 thou/uL (4.0-11.0)
[2020-08-19 06:14] LABS: URINE BILIRUBIN NEGATIVE (Negative); URINE BLOOD 2+ (Negative); URINE CLARITY CLEAR; URINE COLOR YELLOW; URINE GLUCOSE-RANDOM* NEGATIVE (Negative); URINE KETONES NEGATIVE (Negative); URINE LEUKOCYTES-REFLEX NEGATIVE (Negative); URINE NITRITE-REFLEX NEGATIVE (Negative); URINE PROTEIN (DIPSTICK) 3+ (Negative); URINE SPECIFIC GRAVITY 1.025 (1.005-1.035); URINE UROBILINOGEN 0.2 E.U./dl (0.2-1.0)
[2020-08-19 06:40] LABS: CASTS None Seen /LPF (None Seen); SQUAMOUS 0-3 Few /LPF (0-3)
[2020-08-19 06:41] LABS: BACTERIA-REFLEX None Seen /HPF (None Seen); CRYSTALS None Seen /LPF (None Seen); URINE RBC 0-2 Rare /HPF (0-2); URINE WBC-REFLEX 0-5 Rare /HPF (0-5); WBC CLUMPS Occasional (None Seen)
[2020-08-19] MEDS ORDERED: MECLIZINE HCL25 MG PO (06:48)
[2020-08-19 08:10] VITALS: BP 177/118
--- NOTE | 2020-08-20 07:36 | EKG ---
[facility] [place] [address] ELECTROCARDIOGRAM REPORT Name: APARNA RAE [id number] Admission: 08/19/20 Attend Phys: Discharge: 08/19/20 Date of : 81 Report #: [id number] THIS REPORT FOR: cc: NO FAMILY PHYSICIAN or PCP NO FAMILY PHYSICIAN or PCP Mohamud Webster MD [facility] ~ THIS REPORT FOR: //name// [facility] ED Test Date: 2020-08-19 Test Time: 05:06:57 Pat Name: APARNA RAE Department: Room: Gender: News Copy Editor: : 1985 Requested By: Mandy Slater Order Number: [id number] MD: Mohamud Webster Measurements Intervals [place] Rate: 79 P: 56 [place]: 163 QRS: 20 QRSD: 98 T: 196 QT: 434 QTc: 498 Interpretive Statements Sinus rhythm Biatrial enlargement Left ventricular hypertrophy with strain Early repolarization Compared to ECG 10/20/2019 07:41:39 No significant change was found Electronically Signed On 08-20-2020 7:35:54 CDT by Mohamud Webster [email or web address] <ELECTRONICALLY SIGNED> By: Mohamud Webster MD, FAC 08/20/20 0735 0506 0506 Mohamud Webster MD, [facility] /EPI
== END 2020-08-19 08:15 | disposition home or self-care (01) ==
LOC: ER 04:49
PROVIDERS: Emergency Medicine
DX: I16.0 Hypertensive urgency (principal); I13.10 Hypertensive heart and chronic kidney disease without heart failure, with stage 1 through stage 4 chronic kidney disease, or unspecified chronic kidney disease; N18.9 Chronic kidney disease, unspecified; R80.9 Proteinuria, unspecified; J45.909 Unspecified asthma, uncomplicated; Z87.891 Personal history of nicotine dependence; Z91.013 Allergy to seafood

== ENCOUNTER 2020-10-22 20:36 | Emergency (ER) | payer BC, OTHER ==
[~2020-10-22] VITALS: Ht 172.7 cm; Wt 99.8 kg
[~2020-10-22 20:36] MED LIST changes: +HYDROCHLOROTHIA25 M2 PO; +MECLIZINE HCL25 MG PO; +TOPROL XL50 MG PO
[2020-10-22] MEDS ORDERED: HYDROCHLOROTHIA25 M2 PO (21:04)
[2020-10-22] MEDS ORDERED: AMLODIPINE BESY10 MG PO (21:04)
[2020-10-22] MEDS ORDERED: TOPROL XL50 MG PO (21:04)
[2020-10-22] MEDS ORDERED: WIXELA 100-501 EACH INH (21:04)
[2020-10-22 21:29] VITALS: BP 179/112
== END 2020-10-22 21:29 | disposition home or self-care (01) ==
LOC: ER 20:36
DX: I10 Essential (primary) hypertension (principal); J45.909 Unspecified asthma, uncomplicated; Z76.0 Encounter for issue of repeat prescription; Z79.899 Other long term (current) drug therapy; Z87.891 Personal history of nicotine dependence; Z91.013 Allergy to seafood

== ENCOUNTER 2021-05-14 18:34 | Emergency (ER) | payer BC, OTHER ==
[~2021-05-14] VITALS: Ht 170.2 cm; Wt 99.8 kg
[~2021-05-14 18:34] MED LIST changes: +WIXELA 100-501 EACH INH
[2021-05-14 19:27] VITALS: BP 142/93
[2021-05-14] MEDS ORDERED: VENTOLIN HFA 1818 GM INH (21:26)
== END 2021-05-14 21:27 | disposition home or self-care (01) ==
LOC: ER 18:34
DX: J06.9 Acute upper respiratory infection, unspecified (principal); Z20.822 Contact with and (suspected) exposure to COVID-19; J45.909 Unspecified asthma, uncomplicated; I10 Essential (primary) hypertension; F17.210 Nicotine dependence, cigarettes, uncomplicated; Z91.013 Allergy to seafood